=== PATIENT | male | born 1970 | race Caucasian/White ===

== ENCOUNTER 2017-12-31 10:52 | Emergency (ER) | payer OTHER ==
[~2017-12-31] VITALS: Ht 175.3 cm; Wt 95.3 kg
[~2017-12-31 10:52] MED LIST: DEPAKOTE 250MG250 M1 PO; SIMVASTATIN5 MG PO; TEGRETOL200 MG PO; [UNRECOGNIZED DRUG - OTHER] MC
[2017-12-31] MEDS ORDERED: KEPPRA 500 MG500 M1 PO (10:57)
[2017-12-31] MEDS ORDERED: TEGRETOL200 MG PO (10:57)
[2017-12-31 11:13] LABS: NUCLEATED RBCS 0 /100WBC; WBC 5.2 thou/uL (4.0-11.0)
[2017-12-31 11:20] LABS: HEMATOCRIT 40.2 % (42.0-52.0); HEMOGLOBIN 13.6 gm/dL (14.0-18.0); MCH 33.9 pg (26.0-34.0); MCHC 33.8 g/dL (28.0-37.0); MPV 7.5 fl. (7.2-11.1); PLATELET COUNT* 186 thou/uL (150-400); RBC 4.02 mil/uL (4.50-6.00); RDW-CV 13.4 % (10.5-14.5)
[2017-12-31 11:22] LABS: ANION GAP 9 mmol/L (7-16); BUN 18 mg/dL (7-18); CALCIUM 8.5 mg/dL (8.5-10.1); CHLORIDE 108 mmol/L (98-107); CO2 30 mmol/L (21-32); CREATININE 0.9 mg/dL (0.6-1.3); GLUCOSE 127 mg/dL (70-99); POTASSIUM 3.7 mmol/L (3.5-5.1); SODIUM 147 mmol/L (136-145)
[2017-12-31 11:29] LABS: ALBUMIN 3.5 g/dL (3.4-5.0); ALKALINE PHOSPHATASE 79 U/L (46-116); SGOT 21 U/L (15-37); SGPT 37 U/L (30-65); TOTAL BILIRUBIN 0.1 mg/dL (<0.1-1.0); TOTAL PROTEIN 6.8 g/dL (6.4-8.2); TROPONIN-I LEVEL <0.06 ng/mL (<0.06)
[2017-12-31 11:30] LABS: APTT 21.9 Seconds (25.0-31.3); INR 1.1; PROTIME 10.7 Seconds (9.20-11.50)
[2017-12-31 11:50] LABS: ABSOLUTE EOSINOPHILS 0.1 thou/uL (0.0-0.7); ABSOLUTE MONOCYTES 0.3 thou/uL (0.0-1.2); ABSOLUTE NEUTROPHILS 1.8 thou/uL (1.6-8.1); ATYPICAL LYMPHS 1 %; PLATELET ESTIMATE ADEQUATE
[2017-12-31 12:30] VITALS: BP 155/83
== END 2017-12-31 12:30 | disposition short-term general hospital (02) ==
LOC: M.ERS 10:52
PROVIDERS: Family Medicine
DX: S12.691A Other nondisplaced fracture of seventh cervical vertebra, initial encounter for closed fracture (principal); S01.01XA Laceration without foreign body of scalp, initial encounter; I60.9 Nontraumatic subarachnoid hemorrhage, unspecified; I62.00 Nontraumatic subdural hemorrhage, unspecified; W10.8XXA Fall (on) (from) other stairs and steps, initial encounter; Y93.89 Activity, other specified; Y92.098 Other place in other non-institutional residence as the place of occurrence of the external cause; Y99.8 Other external cause status

== ENCOUNTER 2018-01-08 14:59 | Inpatient (IN) | payer OTHER ==
[~2018-01-08] VITALS: Ht 175.3 cm; Wt 93.0 kg
[~2018-01-08 14:59] MED LIST changes: +KEPPRA 500 MG500 M1 PO
[2018-01-08] MEDS ORDERED: CARBAMAZEPINE200 M3 PO (16:10)
[2018-01-08] MEDS ORDERED: DEPAKOTE ER500 MG PO (16:12)
[2018-01-08] MEDS ORDERED: KEPPRA 500 MG500 M1 PO (16:14)
[2018-01-08] MEDS ORDERED: MELATONIN3 MG PO (16:24)
[2018-01-08] MEDS ORDERED: ROBAXIN 750 MG750 M1 PO (16:25)
[2018-01-08] MEDS ORDERED: OXYCODONE HCL 55 MG PO (16:28)
[2018-01-08] MEDS ORDERED: MIRALAX17 GM PO (16:35)
[2018-01-08] MEDS ORDERED: SENNA-DOCUSATE1 EAC1 PO (16:36)
[2018-01-08 19:00] VITALS: BP 157/91
[2018-01-09 04:55] LABS: HEMATOCRIT 40.5 % (42.0-52.0); HEMOGLOBIN 13.8 gm/dL (14.0-18.0); MCHC 34.1 g/dL (28.0-37.0); MCV 99.5 fL (80.0-100.0); MPV 7.6 fl. (7.2-11.1); RBC 4.07 mil/uL (4.50-6.00); RDW-CV 13.3 % (10.5-14.5); WBC 6.4 thou/uL (4.0-11.0)
[2018-01-09 05:19] LABS: CREATININE 0.7 mg/dL (0.6-1.3); POTASSIUM 4.2 mmol/L (3.5-5.1)
[2018-01-09 07:00] VITALS: BP 156/98
[2018-01-09 08:00] VITALS: BP 156/98
[2018-01-09 20:00] VITALS: BP 157/88
[2018-01-10 08:00] VITALS: BP 157/88
[2018-01-10 19:35] VITALS: BP 149/94
[2018-01-11 08:00] VITALS: BP 144/92
[2018-01-11 19:45] VITALS: BP 152/95
[2018-01-12 08:00] VITALS: BP 158/95
[2018-01-12 19:47] VITALS: BP 152/88
[2018-01-13 08:00] VITALS: BP 145/93
[2018-01-13 19:48] VITALS: BP 147/95
[2018-01-14 07:30] VITALS: BP 135/87
[2018-01-14 19:45] VITALS: BP 145/87
[2018-01-15 07:52] VITALS: BP 153/91
[2018-01-15 20:00] VITALS: BP 158/91
[2018-01-16 08:30] VITALS: BP 137/88
[2018-01-16 20:32] VITALS: BP 134/81
[2018-01-17 07:46] VITALS: BP 158/86
[2018-01-17 08:08] VITALS: BP 158/86
[2018-01-17 20:24] VITALS: BP 142/79
[2018-01-18 07:58] VITALS: BP 148/80
[2018-01-18 20:11] VITALS: BP 134/79
[2018-01-19 08:16] VITALS: BP 126/77
[2018-01-19 19:43] VITALS: BP 172/90
[2018-01-20 05:31] LABS: HEMATOCRIT 36.6 % (42.0-52.0); HEMOGLOBIN 12.5 gm/dL (14.0-18.0); MCHC 34.2 g/dL (28.0-37.0); MCV 99.5 fL (80.0-100.0); MPV 7.3 fl. (7.2-11.1); RBC 3.68 mil/uL (4.50-6.00); RDW-CV 13.3 % (10.5-14.5)
[2018-01-20 05:56] LABS: CALCIUM 8.7 mg/dL (8.5-10.1); CREATININE 0.7 mg/dL (0.6-1.3); MAGNESIUM 1.9 mg/dL (1.8-2.4); POTASSIUM 3.9 mmol/L (3.5-5.1)
[2018-01-20 08:08] VITALS: BP 149/80
[2018-01-20 15:00] VITALS: BP 153/85
--- NOTE | 2018-02-03 13:29 | H ---
[address] [address] HISTORY AND PHYSICAL Name: SUSAN SOTO Room: [address] IN M.R.#: [id number] Admission: 01/08/18 Attend Phys: Angelica Mccallum DO Discharge: 01/20/18 Date of : 68 Report #: [id number] THIS REPORT FOR: //name// CC: Angelica Zepeda DATE OF SERVICE: 01/08/2018 REASON FOR ADMISSION: Status post fall downstairs with a diagnoses of traumatic subdural hematoma with loss of consciousness less than 30 minutes, multiple pulmonary nodules, moderate malnutrition, traumatic cerebral edema, traumatic encephalopathy, closed fracture of the seventh cervical vertebra and in a C collar, closed fracture of the temporal bone, traumatic subarachnoid bleed, right hemiparesis, partial epilepsy with intractable epilepsy, 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 Currently, diagnosed with traumatic brain injury, needs in physical and occupational therapy as well as speech and language pathology, weightbearing as tolerated. No significant changes since the preadmission screening. Previous level of function was modified independent to independent with activities of daily living. Current level of function is minimum to moderate assistance of 1-2 depending on therapy, activity and time of day. Estimated length of stay is 14-16 days with discharge disposition to the home setting with supportive family. PAST MEDICAL HISTORY: Low back pain, broken finger, hyperlipidemia, hypertension, migraine, neuropathy, right hemiparesis, oligodendroglioma, seizures, short-term memory loss. PAST SURGICAL HISTORY: Craniotomy x 2 with frontal and temporal craniotomies for resection of the oligodendroglioma. ALLERGIES: No known drug allergies. MEDICATIONS: Reviewed, reconciled and are available in the MAR. FAMILY HISTORY: Cancer. SOCIAL HISTORY: No tobacco, alcohol or illicit drug use. REVIEW OF SYSTEMS: A 14-point review of systems is done and is negative except as mentioned in HPI; specifically no fever, chest pain, shortness of breath, abdominal pain or distention. PHYSICAL EXAMINATION: GENERAL: Alert, oriented, no apparent distress. VITAL SIGNS: [place] [address] HISTORY AND PHYSICAL Name: SUSAN SOTO Room: [address]#: [id number] Admission: 01/08/18 Attend Phys: Angelica Mccallum DO Discharge: 01/20/18 Date of : 68 Report #: [id number] HEENT: Head atraumatic with the exception of laceration on the midline scalp. He also has a C collar in place. LUNGS: Symmetric expansion. ABDOMEN: Obese. GENITOURINARY: No Schroeder. EXTREMITIES: No clubbing, cyanosis or edema. SKIN: Warm and dry. Midline scalp laceration noted. Jolene are intact. NEUROLOGIC: Some dysarthria, some expressive aphasia. Pupils are equal, round, reactive. Facial movements are symmetric. Right upper extremity 3/5 strength, right lower extremity 4/5 strength, left upper extremity 5/5, left lower extremity 5/5. ASSESSMENT: 1. Traumatic subdural hematoma, loss of consciousness less than 30 minutes. 1. Traumatic encephalopathy. 2. Traumatic subarachnoid bleed. 3. Right upper and lower extremity hemiparesis. 4. Expressive aphasia. 5. Status post fall. 6. Moderate malnutrition. 7. 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 8. Partial epilepsy with some intractable epilepsy noted. PLAN: 1. Admission to inpatient rehabilitation to facilitate safe discharge to the home setting. 2. PT, OT, speech, language, case management, nursing and HIMS to make evaluations and recommendations. 3. We will team weekly, plan of care is pending. 4. HIMS will follow for medical management. <ELECTRONICALLY SIGNED> By: Angelica Mccallum DO 02/03/18 1329 [id number] Mccallum DO /nt
--- NOTE | 2018-02-03 13:29 | PLAN ---
[address] [address] REHAB UNIT PLAN OF CARE Name: CHARLESSUSAN Jimy Room: [address] IN [facility].#: [id number] Admission: 01/08/18 Attend Phys: Angelica Mccallum DO Discharge: 01/20/18 Date of : 68 Report #: [id number] THIS REPORT FOR: //name// CC: Angelica Zepeda This is a 47-year-old male admitted to inpatient rehabilitation to facilitate safe discharge home status post intraparenchymal hemorrhage, subarachnoid hemorrhage, subdural hemorrhage, C7 fracture with left temporal bone fracture, status post fall down a flight of stairs in the home setting from standing height. He did have a laceration on his scalp, which was also repaired and does have darryl in it. He does have needs in physical and occupational therapy as well as speech and language pathology. Previous level of function was modified independent to independent with activities of daily living. Current level of function is minimum to moderate assistance of 1-2 depending on therapy, activity and time of day. He does have maximum assistance needed with lower body dressing and moderate impairment of comprehension, expression, social interaction, memory and problem solving. Some of this is from a previous craniotomy x 2, but he does have more impairments at his baseline. MEDICAL PROGNOSIS: Good. REHABILITATION PROGNOSIS: Good. ESTIMATED LENGTH OF STAY: Is 17-20 days with discharge disposition to the home setting. Physical Therapy will see the patient 60-90 minutes per day, 5 days per week, working on upper and lower body strength, balance, coordination, navigation. Occupational Therapy will work with the patient 60-90 minutes per day, 5 days per week, working on upper and lower body strength, balance, coordination, navigation, bathing, dressing, and toileting while maintaining cervical precautions. Speech and Language Pathology will work with the patient 30-90 minutes per day, 5 days per week, working on comprehension, expression, memory strategies for problem solving and memory. This is an overall plan of care, may change from time to time. We will team weekly and make changes to plan of care as needed. <ELECTRONICALLY SIGNED> By: Angelica Mccallum DO 02/03/18 1329 [id number] Mccallum DO /nt
--- NOTE | 2018-02-03 13:30 | D ---
[address] [address] DISCHARGE SUMMARY Name: CHARLESSUSAN Jimy Room: [address] IN M.R.#: [id number] Admission: 01/08/18 Attend Phys: Angelica Mccallum DO Discharge: 01/20/18 Date of : 68 Report #: [id number] THIS REPORT FOR: //name// CC: Angelica Zepeda DISCHARGE DIAGNOSES: Subdural hematoma, subarachnoid hematoma, status post fall at home and now suspect brain abscess. DISCHARGE FACILITY: [facility]. done with Dr. Albright, Internal Medicine and neurosurgical ICU bed is available. The patient was progressing quite well with therapies, was doing very well, last week had a little bit of word finding difficulty that was outside of his normal aphasia, and this progressed over the course of the weekend where a CT was then completed and that was followed up with an MRI. CT done on 01/19 showed extensive postsurgical changes in the left cerebral hemisphere with development of apparent vasogenic edema and sulcal effacement within the left temporal lobe, suggestion of a focal rounded mass or mass effect within the lateral inferior temporal lobe. MRI completed on 01/19 showed acute subarachnoid blood products and subacute blood products in the superior left cerebral hemisphere, small subacute posterior left parietal subdural hematoma without mass effect, left temporal intraparenchymal hematoma 2.8 cm, likely subacute inferior to the previous frontotemporal craniotomy site, moderate vasogenic edema without herniation, mild mass effect, underlying tumor and this hematoma is possible, but less likely. Continued MRI followup is suggested. Previous left frontotemporal craniotomy with chronic encephalomalacia and gliosis in the superior left frontal lobe is also noted, moderate left mastoid air cell fluid is noted. He will remain a full code. Rehab potential is fair. Continue as tolerated physical and occupational therapy as well as speech and language pathology. He does have ongoing right upper and lower extremity hemiparesis from previous craniotomy and tumor removal several years ago. He will remain on the same diet. His wound care will remain the same. Fall precautions and seizure precautions will remain in place. MEDICATIONS: Reviewed and reconciled by myself and are available in the MAR. DISCHARGE PHYSICAL EXAMINATION: GENERAL: Alert, oriented, no apparent distress. VITAL SIGNS: Reviewed [place] [address] DISCHARGE SUMMARY Name: SUSAN SOTO Room: [address]#: [id number] Admission: 01/08/18 Attend Phys: Angelica Mccallum DO Discharge: 01/20/18 Date of : 68 Report #: [id number] SKIN: Warm and dry. EXTREMITIES: Right upper and lower extremity hemiparesis is noted. He has a midline incision and darryl unchanged. NEUROLOGIC: He does have some delayed processing, delayed insight and poor safety. Recommend return to acute inpatient rehabilitation when medically stable. <ELECTRONICALLY SIGNED> By: Angelica Mccallum DO 02/03/18 1330 1354 [id number] Mccallum DO /nt
== END 2018-01-20 15:00 | disposition short-term general hospital (02) | DRG 86 ==
LOC: M.REH 14:59
PROVIDERS: Internal Medicine; ADMIT Physical Medicine & Rehabilitation
DX: S06.6X1A Traumatic subarachnoid hemorrhage with loss of consciousness of 30 minutes or less, initial encounter (principal); S12.600A Unspecified displaced fracture of seventh cervical vertebra, initial encounter for closed fracture; E44.0 Moderate protein-calorie malnutrition; G81.91 Hemiplegia, unspecified affecting right dominant side; G40.919 Epilepsy, unspecified, intractable, without status epilepticus; R47.01 Aphasia; S06.5X1A Traumatic subdural hemorrhage with loss of consciousness of 30 minutes or less, initial encounter; S02.19XA Other fracture of base of skull, initial encounter for closed fracture; S01.01XA Laceration without foreign body of scalp, initial encounter; R91.8 Other nonspecific abnormal finding of lung field; F07.81 Postconcussional syndrome; E78.5 Hyperlipidemia, unspecified; I10 Essential (primary) hypertension; G43.909 Migraine, unspecified, not intractable, without status migrainosus; G93.89 Other specified disorders of brain; G62.9 Polyneuropathy, unspecified; Z68.26 Body mass index [BMI] 26.0-26.9, adult; Z87.891 Personal history of nicotine dependence; Z79.899 Other long term (current) drug therapy; W10.9XXA Fall (on) (from) unspecified stairs and steps, initial encounter; Y93.89 Activity, other specified; Y92.098 Other place in other non-institutional residence as the place of occurrence of the external cause; Y99.8 Other external cause status; Z80.9 Family history of malignant neoplasm, unspecified; Z82.49 Family history of ischemic heart disease and other diseases of the circulatory system

== ENCOUNTER 2018-03-30 22:41 | Emergency (ER) | payer OTHER ==
[~2018-03-30] VITALS: Ht 175.3 cm; Wt 99.8 kg
[~2018-03-30 22:41] MED LIST changes: +CARBAMAZEPINE200 M3 PO; +DEPAKOTE ER500 MG PO; +MELATONIN3 MG PO; +MIRALAX17 GM PO; +OXYCODONE HCL 55 MG PO; +ROBAXIN 750 MG750 M1 PO; +SENNA-DOCUSATE1 EAC1 PO
[2018-03-30 23:21] LABS: ABSOLUTE LYMPHOCYTES 1.7 thou/uL (0.8-5.3); ABSOLUTE MONOCYTES 0.8 thou/uL (0.0-1.2); ABSOLUTE NEUTROPHILS 4.5 thou/uL (1.6-8.1); BASOPHILS 0.6 %; EOSINOPHILS 0.5 %; HEMOGLOBIN 13.4 gm/dL (14.0-18.0); LYMPHOCYTES 24.4 %; MCH 33.5 pg (26.0-34.0); MCHC 33.4 g/dL (28.0-37.0); MCV 100.4 fL (80.0-100.0); MONOCYTES 11.3 %; MPV 7.4 fl. (7.2-11.1); NUCLEATED RBCS 0 /100WBC; PLATELET COUNT* 219 thou/uL (150-400); POLYS 63.2 %; RBC 3.99 mil/uL (4.50-6.00); WBC 7.1 thou/uL (4.0-11.0)
[2018-03-30 23:35] LABS: ANION GAP 7 mmol/L (7-16); BUN 17 mg/dL (7-18); CALCIUM 8.9 mg/dL (8.5-10.1); CHLORIDE 103 mmol/L (98-107); CO2 31 mmol/L (21-32); CREATININE 0.7 mg/dL (0.6-1.3); GLUCOSE 95 mg/dL (70-99); POTASSIUM 4.1 mmol/L (3.5-5.1); SODIUM 141 mmol/L (136-145)
[2018-03-30 23:40] LABS: URINE BILIRUBIN NEGATIVE (Negative); URINE BLOOD NEGATIVE (Negative); URINE CLARITY CLEAR; URINE COLOR YELLOW; URINE GLUCOSE-RANDOM NEGATIVE (Negative); URINE KETONES NEGATIVE (Negative); URINE LEUKOCYTES-REFLEX NEGATIVE (Negative); URINE NITRITE-REFLEX NEGATIVE (Negative); URINE PROTEIN NEGATIVE (Negative); URINE UROBILINOGEN 0.2 E.U./dl (0.2-1.0)
[2018-03-30 23:42] LABS: ALBUMIN 3.6 g/dL (3.4-5.0); ALKALINE PHOSPHATASE 102 U/L (46-116); LIPASE 168 U/L (73-393); SGOT 19 U/L (15-37); SGPT 38 U/L (30-65); TOTAL BILIRUBIN 0.2 mg/dL (<0.1-1.0); TOTAL PROTEIN 7.8 g/dL (6.4-8.2); TROPONIN-I LEVEL <0.06 ng/mL (<0.06)
[2018-03-31 01:11] LABS: AMP/METHAMP Negative (Negative); BARBITURATES Negative (Negative); BENZODIAZEPINES Negative (Negative); COCAINE Negative (Negative); METHADONE Negative (Negative); OPIATES Negative (Negative); PCP Negative (Negative); THC Negative (Negative)
[2018-03-31] MEDS ORDERED: DOXYCYCLINE 10100 MG PO (02:36)
[2018-03-31] MEDS ORDERED: HYDROCODONE-AP1 EAC6 PO (02:36)
[2018-03-31 02:50] VITALS: BP 122/78
== END 2018-03-31 02:51 | disposition home or self-care (01) ==
LOC: M.ERS 22:41
PROVIDERS: Emergency Medicine; Physician Assistant
DX: L03.311 Cellulitis of abdominal wall (principal); E78.5 Hyperlipidemia, unspecified; I10 Essential (primary) hypertension; G43.909 Migraine, unspecified, not intractable, without status migrainosus